=== PATIENT | female | born 1945 ===

== ENCOUNTER 2018-09-19 11:14 | Emergency (ER) | payer OTHER ==
[~2018-09-19] VITALS: Ht 167.6 cm; Wt 59.0 kg
[2018-09-19] MEDS ORDERED: SYNTHROID75 MCG (11:25)
[2018-09-19] MEDS ORDERED: ATROVASTATIN (11:26)
== END 2018-09-19 18:43 | disposition home or self-care (01) ==
LOC: ER 11:14 → CPU-OBS 12:56 → ER 18:43
DX: M94.0 Chondrocostal junction syndrome [Tietze] (principal)

== ENCOUNTER 2022-01-16 12:30 | Inpatient (IN) | payer OTHER ==
[~2022-01-16] VITALS: Ht 167.6 cm; Wt 64.4 kg
[~2022-01-16 12:30] MED LIST: ATROVASTATIN; SYNTHROID75 MCG
[2022-01-18] MEDS ORDERED: AMOX-CLAV 875-1 EACH PO (07:40)
[2022-01-18] MEDS ORDERED: PERCOCET 5-3251 EACH PO (07:40)
[2022-01-18] MEDS ORDERED: MEDROLPACK PO (07:40)
[2022-01-18] MEDS ORDERED: NEURONTIN800 MG PO (07:40)
[2022-01-18] MEDS ORDERED: COLACE100 MG PO (07:40)
== END 2022-01-20 11:56 | DRG 455 ==
LOC: O/R 01-18 07:02 → SURG 01-18 12:30 → SURH 01-18 17:03
PROVIDERS: ADMIT Orthopaedic Surgery Orthopaedic Surgery of the Spine; ATTEND Orthopaedic Surgery Orthopaedic Surgery of the Spine
PROC: 0SG0071 Fusion of Lumbar Vertebral Joint with Autologous Tissue Substitute, Posterior Approach, Posterior Column, Open Approach (ICD-10-PCS; 2022-01-18)
PROC: 0QB30ZZ Excision of Left Pelvic Bone, Open Approach (ICD-10-PCS; 2022-01-18)
PROC: 0ST20ZZ Resection of Lumbar Vertebral Disc, Open Approach (ICD-10-PCS; 2022-01-18)
PROC: 07DR0ZZ Extraction of Iliac Bone Marrow, Open Approach (ICD-10-PCS; 2022-01-18)
PROC: 0SG00A0 Fusion of Lumbar Vertebral Joint with Interbody Fusion Device, Anterior Approach, Anterior Column, Open Approach (ICD-10-PCS; principal; 2022-01-18 14:30)
DX: M43.16 Spondylolisthesis, lumbar region (principal); M48.062 Spinal stenosis, lumbar region with neurogenic claudication; M51.36 Other intervertebral disc degeneration, lumbar region; E03.9 Hypothyroidism, unspecified